=== PATIENT | female | born 1990 | race Caucasian/White ===

== ENCOUNTER 2020-08-12 07:35 | Outpatient (CLI) | payer BC ==
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
== END 2020-08-12 07:36 | disposition home or self-care (01) ==
LOC: TBSIIMAG 07:35
PROVIDERS: ATTEND Orthopaedic Surgery
DX: M23.92 Unspecified internal derangement of left knee (principal)